=== PATIENT | female | born 1930 | race Caucasian/White ===

== ENCOUNTER → 2017-08-28 | Outpatient (CLI) | payer OTHER ==
[~2017-08-28] MED LIST: ACET325 PO; ALBU90OI6 INH; ALEN70 PO; ALLERGY RELIEF; ALLERGY SHOTS; ALPR.5 PO; ASPI81EC PO; Acidophilus La100 GM; BECL40OI INH; CALCA500CH PO; CHOL10002 PO; CIPRO500 MG PO; CLOP75 PO; DIPASPER PO; DIPY75 PO; FLUNNIA; GABA100; LYSINE; LYSINE PO; MELA3 PO; METPRE4DP PO; MULVITMIND PO; Mobic7.5 MG PO; Norco 5-325 Ta1 EACH PO; OMEG1CAP30 PO; OMEP40CA12 PO; OTC ALLERGY; OXYC5; OXYC5 PO; POLY17UD PO; PRAV20 PO; PROC5 PO; Pravachol PO; Pravachol40 MG PO; Senna8.6 M1 PO
== END ==
LOC: PLD 13:47 → LAB SHORT 13:47
DX: D48.5 Neoplasm of uncertain behavior of skin (principal)
CPT/HCPCS: 88305

== ENCOUNTER → 2017-09-11 | Outpatient (CLI) | payer OTHER | END | disposition home or self-care (01) | LOC: PLD 07:40 → LAB SHORT 07:40 | DX: C44.41 Basal cell carcinoma of skin of scalp and neck (principal) | CPT/HCPCS: 88305 ==

== ENCOUNTER → 2017-09-13 | Outpatient (CLI) | payer OTHER ==
[2017-09-13 10:35] LABS: Source, Urine Clean Catch
[2017-09-13 12:51] LABS: Bilirubin, Urine Neg (Neg); Blood, Urine Neg (Neg); Glucose Qualitative, Urine Neg (Neg); Ketones, Urine Neg (Neg); Leukocyte Esterase, Urine 2+ (Neg); Nitrite, Urine Neg (Neg); Protein, Urine Neg (Neg); Urobilinogen, Urine NORM (Normal)
[2017-09-13 13:07] LABS: Appearance, Urine Clear (Clear); Color, Urine Yellow (P-Yellow)
[2017-09-13 14:06] LABS: Bacteria Few /hpf; Red Blood Cells, Urine 0-2 /hpf (0-2); Squamous Epithelial Cells Few /hpf (Few)
== END | disposition home or self-care (01) ==
LOC: LAB SHORT 09:30 → LAB 09:30 → LAB FUT 09-13 08:15
PROVIDERS: Internal Medicine
DX: R39.15 Urgency of urination (principal)
CPT/HCPCS: 81001